=== PATIENT | female | born 1940 | race Caucasian/White ===

== ENCOUNTER 2016-10-30 12:12 | Emergency (ER) | payer MEDICARE, BC ==
[~2016-10-30] VITALS: Ht 152.4 cm; Wt 63.6 kg
[~2016-10-30 12:12] MED LIST: FLAXSEED OIL1 CAP PO; HCTZ 25MG25 MG PO; HYZAAR 12.5 MG-1 TAB PO; HYZAAR PO; NORCO 325 MG-51 TAB PO; OMEGA-3 FISH1200 MG PO; PRILOSEC 20MG20 MG PO; SIMVASTATIN40 MG PO; ZOFRAN4 M1 PO; [UNRECOGNIZED DRUG - OTHER]; [UNRECOGNIZED DRUG - OTHER]; [UNRECOGNIZED DRUG - OTHER]; [UNRECOGNIZED DRUG - OTHER]
[2016-10-30 12:23] VITALS: BP 184/92; TEMP 99.1
[2016-10-30 14:12] VITALS: PULSE 81
== END 2016-10-30 14:12 | disposition home or self-care (01) ==
LOC: COL.ER 12:12
DX: S69.92XA Unspecified injury of left wrist, hand and finger(s), initial encounter (principal); I10 Essential (primary) hypertension; E11.9 Type 2 diabetes mellitus without complications; Z90.710 Acquired absence of both cervix and uterus; Z79.84 Long term (current) use of oral hypoglycemic drugs; Z79.4 Long term (current) use of insulin; W18.39XA Other fall on same level, initial encounter; Y92.009 Unspecified place in unspecified non-institutional (private) residence as the place of occurrence of the external cause

== ENCOUNTER → 2017-03-27 | Outpatient (CLI) | payer MEDICARE, BC ==
[2005-04-16 12:30] VITALS: TEMP 99.3
== END ==
LOC: MC.RAD 13:52
DX: Z12.31 Encounter for screening mammogram for malignant neoplasm of breast (principal)

== ENCOUNTER 2018-02-21 05:16 | Emergency (ER) | payer MEDICARE, OTHER ==
[~2018-02-21] VITALS: Ht 152.4 cm; Wt 68.2 kg
[~2018-02-21 05:16] MED LIST changes: +ASPIRIN 81M81 MG/TA2 PO; +CIPRO 500MG TA500 MG PO; +FLAGYL500 MG PO; +LEVAQUIN 750MG750 M1 PO; +LOSARTAN-HCTZ 100-12
[2018-02-21 05:18] VITALS: TEMP 97.8
[2018-02-21] MEDS ORDERED: HYZAAR 12.5 MG-1 TAB PO (05:37)
[2018-02-21 06:18] LABS: BASO # 0.1 (0.0-0.2); BASO % 0.5 % (0.0-2.0); EOS # 0.2 (0.0-0.7); EOS % 2.4 % (0-4.0); GRAN # 7.4 (1.4-6.5); GRAN % 73.6 % (42.2-75.2); HEMOGLOBIN 11.1 g/dl (12.5-16.0); LYMPH # 1.3 (1.2-3.4); LYMPH % 13.4 % (20.0-51.0); MEAN CELL VOLUME 91 fl (80.0-100.0); MEAN CORPUSCULAR HEMOGLOBIN 29 pg (27.0-31.0); MEAN CORPUSCULAR HGB CONC 32 g/dl (33.0-37.0); MEAN PLATELET VOLUME 9.7 fl (7.4-10.4); MONO # 0.9 (0.1-0.6); MONO % 9.1 % (1.7-9.3); PLATELET COUNT 310 K/mm3 (130-400); RED BLOOD COUNT 3.81 M/mm3 (4.10-5.30); REDCELL DISTRIBUTION WIDTH-CV 14.1 % (11.5-14.5)
[2018-02-21 06:29] LABS: ALBUMIN 3.9 gm/dL (3.5-5.0); BILIRUBIN,TOTAL 0.5 mg/dL (0.0-1.0); CALCIUM 9.1 mg/dL (8.4-10.2); CREATININE, serum 0.94 mg/dL (0.52-1.25); POTASSIUM 3.7 mmol/L (3.4-5.0); TOTAL PROTEIN 7.2 gm/dL (6.4-8.2)
[2018-02-21 06:34] LABS: HEMATOCRIT 34.5 % (37.0-47.0)
[2018-02-21] MEDS ORDERED: NORCO 325 MG-51 TAB PO (06:58)
[2018-02-21] MEDS ORDERED: ZOFRAN 4MG T4 MG/TAB PO (06:58)
[2018-02-21] MEDS ORDERED: FLOMAX 0.40.4 MG/CAP PO (06:59)
[2018-02-21] MEDS ORDERED: AMOXICILLIN 8751 TAB PO (07:16)
[2018-02-21 07:21] LABS: COLLECTION METHOD CLEAN CATCH
[2018-02-21 07:27] LABS: MUCOUS Present /lpf; PH 5 (5-8); SQUAMOUS EPITHELIAL 0-2 /hpf; URINE APPEARANCE Clear; URINE BACTERIA None Seen /hpf; URINE BILIRUBIN Negative (NEGATIVE); URINE BLOOD Negative (NEGATIVE); URINE COLOR Yellow; URINE GLUCOSE Negative (NEGATIVE); URINE KETONE Negative (NEGATIVE); URINE LEUKOCYTE ESTERASE Negative (NEGATIVE); URINE NITRATE Negative (NEGATIVE); URINE PROTEIN(semi-quant) Negative (NEGATIVE); URINE RBC 0-2 /hpf; URINE UROBILINOGEN Negative (NEGATIVE)
[2018-02-21 07:50] VITALS: BP 162/75; PULSE 72
== END 2018-02-21 07:58 | disposition home or self-care (01) ==
LOC: COL.ER 05:16
PROVIDERS: Emergency Medicine
DX: N20.1 Calculus of ureter (principal); N23 Unspecified renal colic; E11.9 Type 2 diabetes mellitus without complications; K21.9 Gastro-esophageal reflux disease without esophagitis; I10 Essential (primary) hypertension; Z87.442 Personal history of urinary calculi
CPT/HCPCS: J1885; J2405; J3010; J7030

== ENCOUNTER 2018-03-09 09:57 | Emergency (ER) | payer MEDICARE, OTHER ==
[~2018-03-09] VITALS: Ht 152.4 cm; Wt 68.2 kg
[~2018-03-09 09:57] MED LIST changes: +AMOXICILLIN 8751 TAB PO; +FLOMAX 0.40.4 MG/CAP PO; +ZOFRAN 4MG T4 MG/TAB PO
[2018-03-09 10:04] VITALS: TEMP 98.8
[2018-03-09 10:36] LABS: BASO # 0.1 (0.0-0.2); BASO % 0.9 % (0.0-2.0); EOS # 0.3 (0.0-0.7); GRAN # 5.5 (1.4-6.5); GRAN % 61.4 % (42.2-75.2); HEMATOCRIT 40.5 % (37.0-47.0); LYMPH # 2.2 (1.2-3.4); MEAN CELL VOLUME 90 fl (80.0-100.0); MEAN CORPUSCULAR HEMOGLOBIN 29 pg (27.0-31.0); MEAN CORPUSCULAR HGB CONC 32 g/dl (33.0-37.0); MEAN PLATELET VOLUME 10.4 fl (7.4-10.4); MONO # 0.8 (0.1-0.6); MONO % 9.1 % (1.7-9.3); PLATELET COUNT 329 K/mm3 (130-400); REDCELL DISTRIBUTION WIDTH-CV 13.7 % (11.5-14.5)
[2018-03-09 10:50] LABS: ALBUMIN 4.7 gm/dL (3.5-5.0); BILIRUBIN,TOTAL 0.8 mg/dL (0.0-1.0); CALCIUM 10.2 mg/dL (8.4-10.2); CREATININE, serum 0.84 mg/dL (0.52-1.25); POTASSIUM 4.1 mmol/L (3.4-5.0); TOTAL PROTEIN 8.5 gm/dL (6.4-8.2)
[2018-03-09] MEDS ORDERED: PERCOCET 325 MG1 TA2 PO (10:55)
[2018-03-09] MEDS ORDERED: PHENERGAN 25 TA25 MG PO (10:55)
[2018-03-09 11:04] LABS: COLLECTION METHOD CLEAN CATCH
[2018-03-09 11:14] LABS: MUCOUS Present /lpf; PH 5 (5-8); SQUAMOUS EPITHELIAL 0-2 /hpf; URINE APPEARANCE Clear; URINE BACTERIA None Seen /hpf; URINE BILIRUBIN Negative (NEGATIVE); URINE BLOOD 2+ (NEGATIVE); URINE COLOR Yellow; URINE GLUCOSE Negative (NEGATIVE); URINE KETONE Negative (NEGATIVE); URINE LEUKOCYTE ESTERASE Negative (NEGATIVE); URINE NITRATE Negative (NEGATIVE); URINE PROTEIN(semi-quant) Negative (NEGATIVE); URINE UROBILINOGEN Negative (NEGATIVE)
[2018-03-09 12:00] VITALS: BP 135/57; PULSE 72
[2018-03-09] MEDS ORDERED: FLOMAX 0.40.4 MG/CAP PO (12:16)
[2018-03-09] MEDS ORDERED: CEPHALEXIN500 M1 PO (12:17)
== END 2018-03-09 12:30 | disposition home or self-care (01) ==
LOC: COL.ER 09:57
PROVIDERS: Emergency Medicine
DX: N13.2 Hydronephrosis with renal and ureteral calculous obstruction (principal); I10 Essential (primary) hypertension; E11.9 Type 2 diabetes mellitus without complications; K21.9 Gastro-esophageal reflux disease without esophagitis; Z90.710 Acquired absence of both cervix and uterus; Z90.49 Acquired absence of other specified parts of digestive tract
CPT/HCPCS: J1885; J2270; J2405; J2550; J7030

== ENCOUNTER 2019-03-17 07:41 | Observation (INO) | payer MEDICARE ==
[~2019-03-17] VITALS: Ht 152.4 cm; Wt 67.1 kg
[~2019-03-17 07:41] MED LIST changes: +CEPHALEXIN500 M1 PO; +PERCOCET 325 MG1 TA2 PO; +PHENERGAN 25 TA25 MG PO
[2019-03-17 08:35] LABS: COLLECTION METHOD CLEAN CATCH
[2019-03-17 08:39] LABS: BASO # 0.1 (0.0-0.2); BASO % 0.5 % (0.0-2.0); EOS # 0.3 (0.0-0.7); EOS % 2.5 % (0-4.0); GRAN # 7.5 (1.4-6.5); GRAN % 66.2 % (42.2-75.2); HEMATOCRIT 39.9 % (37.0-47.0); HEMOGLOBIN 12.6 g/dl (12.5-16.0); LYMPH # 2.5 (1.2-3.4); LYMPH % 21.6 % (20.0-51.0); MEAN CELL VOLUME 89 fl (80.0-100.0); MEAN CORPUSCULAR HEMOGLOBIN 28 pg (27.0-31.0); MEAN CORPUSCULAR HGB CONC 32 g/dl (33.0-37.0); MEAN PLATELET VOLUME 10.4 fl (7.4-10.4); MONO % 8.4 % (1.7-9.3); PLATELET COUNT 309 K/mm3 (130-400); RED BLOOD COUNT 4.48 M/mm3 (4.10-5.30); REDCELL DISTRIBUTION WIDTH-CV 13.9 % (11.5-14.5)
[2019-03-17] MEDS ORDERED: PRILOSEC 20MG20 MG PO (08:41)
[2019-03-17] MEDS ORDERED: COZAAR100 MG PO (08:41)
[2019-03-17 08:53] LABS: ALBUMIN 4.8 gm/dL (3.5-5.0); BILIRUBIN,TOTAL 0.6 mg/dL (0.0-1.0); C-REACTIVE PROTEIN 0.8 mg/dL (0.0-0.9); CALCIUM 9.9 mg/dL (8.4-10.2); CREATININE, serum 0.86 (0.52-1.25); MUCOUS Present /lpf; PH 5 (5-8); POTASSIUM 3.8 mmol/L (3.4-5.0); SQUAMOUS EPITHELIAL 0-2 /hpf; TOTAL PROTEIN 8.8 gm/dL (6.4-8.2); URINE APPEARANCE Cloudy; URINE BACTERIA None Seen /hpf; URINE BILIRUBIN Negative (NEGATIVE); URINE BLOOD 3+ (NEGATIVE); URINE COLOR Yellow; URINE GLUCOSE Negative (NEGATIVE); URINE KETONE Negative (NEGATIVE); URINE LEUKOCYTE ESTERASE 1+ (NEGATIVE); URINE NITRATE Negative (NEGATIVE); URINE PROTEIN(semi-quant) 2+ (NEGATIVE); URINE RBC >50 /hpf; URINE UROBILINOGEN Negative (NEGATIVE)
[2019-03-17] MEDS ORDERED: OMNICEF 300MG300 MG PO (08:58)
[2019-03-17] MEDS ORDERED: NORCO 325 MG-51 TAB PO (08:58)
[2019-03-17 13:19] VITALS: BP 106/89; PULSE 85; TEMP 98
--- NOTE | 2019-03-17 16:44 | NUR ---
To procedure at this time.
[2019-03-17 18:35] VITALS: BP 128/74; PULSE 74; TEMP 98
[2019-03-17 18:39] VITALS: TEMP 97.3
[2019-03-17 18:40] VITALS: BP 127/67; PULSE 74
[2019-03-17 18:55] VITALS: BP 137/71; PULSE 74
[2019-03-17 19:10] VITALS: BP 137/79; PULSE 76
--- NOTE | 2019-03-17 23:46 | NUR ---
Patient urinated, ate, and drank fluids. INT discontinued from right hand. Spouse at bedside. All belongings sent with patient including 2 paper prescriptions. Education given on discharge instructions. All questions answered. Patient assisted by wheelchair to personal vehicle at 2014.
== END 2019-03-17 20:15 | disposition home or self-care (01) ==
LOC: COL.ER 07:41 → SURG 10:08 → EDBEDREQ 11:31 → SURG 20:15
PROVIDERS: Emergency Medicine; ADMIT Urology
DX: N20.1 Calculus of ureter (principal); I10 Essential (primary) hypertension; J45.909 Unspecified asthma, uncomplicated; K21.9 Gastro-esophageal reflux disease without esophagitis; E11.9 Type 2 diabetes mellitus without complications; Z90.710 Acquired absence of both cervix and uterus; Z90.49 Acquired absence of other specified parts of digestive tract; Z80.3 Family history of malignant neoplasm of breast; Z79.82 Long term (current) use of aspirin
CPT/HCPCS: A4216; C1769; C2617; J0690; J0696; J1885; J2270; J2405; J2704; J3010; J7030; Q9967

== ENCOUNTER 2019-03-23 08:35 | Day surgery (SDC) | payer MEDICARE, OTHER ==
[~2019-03-23] VITALS: Ht 152.4 cm; Wt 97.6 kg
[~2019-03-23 08:35] MED LIST changes: +COZAAR100 MG PO; +OMNICEF 300MG300 MG PO
[2019-03-23 09:20] VITALS: BP 187/47; PULSE 80; TEMP 98.5
[2019-03-23] MEDS ORDERED: CENTRUM SILVER1 TAB PO (09:33)
[2019-03-23] MEDS ORDERED: NORCO 325 MG-51 TAB PO (09:34)
[2019-03-23] MEDS ORDERED: OMNICEF 300MG300 MG PO (09:34)
--- NOTE | 2019-03-23 09:37 | NUR ---
TO RM 1 AT 0846- CALL LIGHT IN REACH AT BEDSIDE.
[2019-03-23 11:53] VITALS: BP 148/53; PULSE 72; TEMP 97.9
--- NOTE | 2019-03-23 11:53 | NUR ---
TO RM 1 PER CART FROM PACU. ALERT ORIENTED X3, TALKING TO STAFF AND . PATIENT ALREADY ASKING WHEN SHE CAN GO HOME. DENIES N/V DENIES PAIN OR DISCOMFORT
[2019-03-23 11:59] VITALS: TEMP 97.9
[2019-03-23 12:10] VITALS: BP 138/64; PULSE 82
--- NOTE | 2019-03-23 12:10 | NUR ---
RECEIVED MUFFIN AND WATER.
[2019-03-23 12:25] VITALS: BP 161/65; PULSE 72
--- NOTE | 2019-03-23 12:25 | NUR ---
ATE 100% AND TOLERATED WELL.
--- NOTE | 2019-03-23 12:40 | NUR ---
PATIENT STATED SHE NEEDED TO USE COMMODE, BUT HAS WET ALL OVER HERSELF. PAD UNDER PATIENT WET. TRANSFERED TO BEDSIDE COMMODE AND PATIENT VOIDED AGAIN IN COMMODE. RECEIVED PERICARE AND ASSISTED BACK TO BED.
--- NOTE | 2019-03-23 13:00 | NUR ---
UPON RETURNING TO , PATIENT TRANSFERED SELF BACK TO BEDSIDE COMMODE. VOIDED AGAIN. DRESSED WITH ASSISTANCE. RECEIVED DISCHARGE INSTRUCTIONS AND VERBALIZED UNDERSTANDING.
--- NOTE | 2019-03-23 13:25 | NUR ---
ASSISTED PATIENT TO FIND CAR. DISCHARGED PER WC BY NURSING STAFF TO PRIVATE CAR IN CARE OF -SUNDEEP.
== END 2019-03-23 14:29 | disposition home or self-care (01) ==
LOC: SDCO 08:35
DX: N20.1 Calculus of ureter (principal); I10 Essential (primary) hypertension; J45.909 Unspecified asthma, uncomplicated; K21.9 Gastro-esophageal reflux disease without esophagitis; E11.9 Type 2 diabetes mellitus without complications; Z90.710 Acquired absence of both cervix and uterus; Z90.89 Acquired absence of other organs; Z79.899 Other long term (current) drug therapy; Z79.82 Long term (current) use of aspirin; Z79.891 Long term (current) use of opiate analgesic; Z80.3 Family history of malignant neoplasm of breast
CPT/HCPCS: C1769; C2617; J0690; J1885; J2405; J2704; J3010; J7030